=== PATIENT | male | born 1965 | race Caucasian/White ===

== ENCOUNTER → 2021-09-16 22:32 | Outpatient (REF) | payer OTHER, SELFPAY | LOC: HO.SL 22:32 | PROVIDERS: PCP Physician Assistant; Visit Provider Physician Assistant | DX: G47.33 Obstructive sleep apnea (adult) (pediatric) (principal); G47.61 Periodic limb movement disorder | CPT/HCPCS: 95811 ==

== ENCOUNTER 2022-04-13 07:24 | Day surgery (SDC) | payer OTHER, SELFPAY ==
--- NOTE | 2022-04-09 11:57 | P.CONAN_ITS ---
Documented by User: Giovana Garcia NP 04/09/22 11:57 HPI - Anesthesia Eval Consult details Narrative: 56yo M for Colonoscopy FOR[facility] Past Medical History Medical History (Updated 04/09/22 @ 11:03 by Sarai Luz RN) Anxiety Diverticulitis HTN (hypertension) SAVANNA (obstructive sleep apnea) PTSD (post-traumatic stress disorder) Surgical History Surgical History (Updated 04/09/22 @ 11:03 by Sarai Luz RN) History of colon resection History of left knee replacement Social History Social History Patient Tobacco Use Status: Never used Tobacco Second Hand Smoke Exposure: No Use of substances other than those prescribed or required for medical reasons: No Are you DNR?: No Advance Directives: No Advance Directives Information Provided: Yes Advance Directives on File: No Meds Allergies Allergy/AdvReac Type Severity Reaction Status Date / Time No Known Allergies Allergy Unverified 01/03/20 14:57 [No Known Allergies*] Home Medications Medication Instructions Recorded Confirmed Last Taken Type amlodipine 10 mg tablet 10 mg PO DAILY 04/09/22 04/13/22 Unknown History doxepin 10 mg capsule 1 cap PO BEDTIME 04/09/22 04/09/22 Unknown History hydrochlorothiazide 25 mg tablet 25 mg PO DAILY 04/09/22 04/13/22 Unknown History prazosin 1 mg capsule 1 mg PO DAILY 04/09/22 04/13/22 Unknown History sertraline 100 mg tablet 1 tab PO BID 04/09/22 04/09/22 Unknown History Exam Exam Date and Time: April 09, 2022 1157 Assessment and Plan Assessment Anesthesia Assessment: Chart Reviewed Documented by User: Khadar Pagan MD 04/13/22 15:52 [facility] Past Medical History Medical History (Updated 04/09/22 @ 11:03 by Sarai Luz RN) Anxiety Diverticulitis HTN (hypertension) SAVANNA (obstructive sleep apnea) PTSD (post-traumatic stress disorder) Family History Family history of problems with anesthesia: No Surgical History Surgical History (Updated 04/09/22 @ 11:03 by Sarai Luz RN) History of colon resection History of left knee replacement History of Problems with Anesthesia: No Social History Social History Patient Tobacco Use Status: Never used Tobacco Second Hand Smoke Exposure: No Use of substances other than those prescribed or required for medical reasons: No Are you DNR?: No Advance Directives: No Advance Directives Information Provided: Yes Advance Directives on File: No Meds Allergies Allergy/AdvReac Type Severity Reaction Status Date / Time No Known Allergies Allergy Unverified 01/03/20 14:57 [No Known Allergies*] Home Medications Medication Instructions Recorded Confirmed Last Taken Type amlodipine 10 mg tablet 10 mg PO DAILY 04/09/22 04/13/22 Unknown History doxepin 10 mg capsule 1 cap PO BEDTIME 04/09/22 04/09/22 Unknown History hydrochlorothiazide 25 mg tablet 25 mg PO DAILY 04/09/22 04/13/22 Unknown History prazosin 1 mg capsule 1 mg PO DAILY 04/09/22 04/13/22 Unknown History sertraline 100 mg tablet 1 tab PO BID 04/09/22 04/09/22 Unknown History Exam Airway Mallampati Class: III TM Dist: >3cm Neck ROM: Full Loose/Missing/Broken Teeth: Yes Heart: S1,S2 Lungs: b/l breath sounds Assessment and Plan Assessment Anesthesia Assessment: Anesthesia Plan Discussed Final Anesthetic Review Family History of Problems with Anesthesia: No History of Problems with Anesthesia: No NPO: Yes Final Preanesthetic Review: Meds/Allgs Chart Reviewed and Anes Risks/Benef Reviewed Patient Risk: Intermediate Procedure Risk: Intermediate Anesthetic Plan Anesthetic Plan: MAC: Disposition: Standard PACU
[2022-04-13 07:38] VITALS: BMI 39.7
[2022-04-13 07:49] VITALS: BP 131/95; PULSE 73; RESP 16; O2SAT 97
[2022-04-13] MEDS: Lactated Ringers 1,000 ML 100 ML IVCONT (07:55)
[2022-04-13 08:56] VITALS: BP 135/73; PULSE 66; RESP 16; TEMP 36.1; O2SAT 96
[2022-04-13 09:11] VITALS: BP 111/75; PULSE 68; RESP 16; TEMP 36.6; O2SAT 98
--- NOTE | 2022-04-13 09:14 | OP_ITS ---
SURGEON: Skinny Shipley MD INDICATIONS: Colon cancer screening. PREOPERATIVE DIAGNOSIS: POSTOPERATIVE DIAGNOSIS: PROCEDURE PERFORMED: Colonoscopy to the terminal ileum. ESTIMATED BLOOD LOSS: COMPLICATIONS: ANESTHESIA: Monitored anesthesia care. ASSISTANTS: SPECIMENS: DESCRIPTION OF PROCEDURE: Date 04/13/22. A History and Physical was performed. The risks and benefits of the procedure were explained to the patient. Informed consent was obtained. The patient was placed in left lateral decubitus position. A digital rectal exam was performed and is found to be normal. The Olympus pediatric video colonoscope was introduced into the rectum and advanced to the cecum without difficulty. The cecum was identified by transillumination, palpation, and identification of ileocecal valve. Examination was performed. The scope was removed. He tolerated the procedure well and was transferred to recovery area in stable condition. FINDINGS: The terminal ileum was normal. The visualized colonic mucosa was normal. The quality of prep was good. There was scattered diverticulosis. Retroflexed examination showed small internal hemorrhoids. IMPRESSION: Normal colonoscopy. RECOMMENDATIONS: 1. Follow up as needed. 2. Repeat colonoscopy is recommended in 10 years for average risk individuals. MD SHAYY Quigley/MARILIA / [id number] MTDD
== END 2022-04-13 09:49 | disposition home or self-care (01) ==
PROVIDERS: PCP Physician Assistant; Visit Provider Internal Medicine Gastroenterology
PROC: 0DJD8ZZ Inspection of Lower Intestinal Tract, Via Natural or Artificial Opening Endoscopic (ICD-10-PCS; CPT 45378; principal; 2022-04-13 08:50)
DX: Z12.11 Encounter for screening for malignant neoplasm of colon (principal); K57.30 Diverticulosis of large intestine without perforation or abscess without bleeding; K64.8 Other hemorrhoids; I10 Essential (primary) hypertension; G47.33 Obstructive sleep apnea (adult) (pediatric); F43.10 Post-traumatic stress disorder, unspecified; F41.1 Generalized anxiety disorder; Z79.899 Other long term (current) drug therapy; Z87.19 Personal history of other diseases of the digestive system; Z90.49 Acquired absence of other specified parts of digestive tract; Z96.652 Presence of left artificial knee joint
CPT/HCPCS: 45378